=== PATIENT | male | born 1985 | race Hispanic/Latino ===

== ENCOUNTER 2021-10-08 08:21 | Outpatient (CLI) | payer BC | END 2021-10-08 08:22 | disposition home or self-care (01) | LOC: BICULT 08:21 | PROVIDERS: ATTEND Family Medicine | DX: R74.01 Elevation of levels of liver transaminase levels (principal); K76.0 Fatty (change of) liver, not elsewhere classified; K82.4 Cholesterolosis of gallbladder | CPT/HCPCS: 76705 ==